=== PATIENT | male | born 1965 | race Caucasian/White ===

== ENCOUNTER 2017-11-01 17:15 | Inpatient (IN) | payer OTHER ==
[~2017-11-01] VITALS: Ht 175.3 cm; Wt 69.4 kg
[2017-11-01 17:59] LABS: BASOPHILS 0.3 % (0-2); EOSINOPHILS 1.2 % (0-7); HEMATOCRIT 41.6 % (42.0-54.0); HEMOGLOBIN 14.9 g/dL (13.5-17.5); IMMATURE GRANULOCYTES 0.6 % (0-5); LYMPHOCYTES 46.1 % (15-50); MCH 33.3 pg (26.0-34.0); MCHC 35.8 g/dL (31.0-37.0); MCV 92.9 fL (80.0-100.0); MEAN PLATELET VOLUME 10.4 fL (7.4-10.4); MONOCYTES 9.3 % (2-11); NEUTROPHILS 42.5 % (40-80); PLATELET COUNT 276 10x3/uL (130-400); RBC 4.48 10x6/uL (4.20-6.10); RDW 12.6 % (11.5-14.5); WBC 3.2 10x3/uL (4.8-10.8)
[2017-11-01 18:09] LABS: INR 1.04 (0.85-1.17); PROTIME 13.2 SECONDS (11.6-15.0)
[2017-11-01 18:26] LABS: ALBUMIN 3.7 g/dL (3.4-5.0); ALKALINE PHOSPHATASE 46 U/L (46-116); ALT (SGPT) 15 U/L (10-68); BILIRUBIN - TOTAL 0.36 mg/dL (0.2-1.3); CALC OSMOLALITY 301 mosm/kg (275-300); CARBON DIOXIDE 21.7 mmol/L (21.0-32.0); CHLORIDE - SERUM 95 mmol/L (98-107); CREATININE - SERUM 6.5 mg/dL (0.6-1.3); GLUCOSE 108 mg/dL (74-106); POTASSIUM - SERUM 5.2 mmol/L (3.5-5.1); PROTEIN - SERUM 6.8 g/dL (6.4-8.2); SODIUM 129 mmol/L (136-145); UREA NITROGEN 129 mg/dL (7-18); eGFR NON AFRICAN AMERICAN 10 mL/min (90-120)
[2017-11-01 18:31] LABS: CREATINE KINASE 145 UL (21-232); LIPASE 430 U/L (73-393); PRO BNP 31 pg/mL (0-125)
[2017-11-01 18:36] LABS: MAGNESIUM - SERUM 3.8 mg/dL (1.8-2.4); TROPONIN-I < 0.017 ng/mL (0.000-0.060)
[2017-11-01 19:01] LABS: APPEARANCE CLEAR (CLEAR); BILIRUBIN NEGATIVE (NEGATIVE); COLOR YELLOW (YELLOW); GLUCOSE NEGATIVE (NEGATIVE); KETONE NEGATIVE (NEGATIVE); NITRITE NEGATIVE (NEGATIVE); PROTEIN NEGATIVE (NEGATIVE); UROBILINOGEN NORMAL (NORMAL)
[2017-11-01 19:40] LABS: T4 THYROXIN - FREE 0.94 ng/dL (0.76-1.46); T4 THYROXINE 6.5 ug/dL (4.7-13.3); THYROID STIMULATING HORMONE 1.2 uIU/mL (0.36-3.74)
[2017-11-02 01:16] LABS: CKMB 2.2 U/L (0.0-3.6); CREATINE KINASE 150 UL (21-232)
[2017-11-02 01:29] LABS: TROPONIN-I < 0.017 ng/mL (0.000-0.060)
[2017-11-02 01:38] VITALS: BMI 22.6
[2017-11-02 02:46] LABS: BASOPHILS 0.4 % (0-2); EOSINOPHILS 1.5 % (0-7); HEMATOCRIT 39.7 % (42.0-54.0); HEMOGLOBIN 14.1 g/dL (13.5-17.5); IMMATURE GRANULOCYTES 0.4 % (0-5); LYMPHOCYTES 39.8 % (15-50); MCH 32.9 pg (26.0-34.0); MCHC 35.5 g/dL (31.0-37.0); MCV 92.5 fL (80.0-100.0); MONOCYTES 17.4 % (2-11); NEUTROPHILS 40.5 % (40-80); PLATELET COUNT 224 10x3/uL (130-400); RBC 4.29 10x6/uL (4.20-6.10); RDW 12.6 % (11.5-14.5); WBC 2.6 10x3/uL (4.8-10.8)
[2017-11-02 02:55] LABS: ANION GAP 12.7 mmol/L (8-16); CALCIUM 8.6 mg/dL (8.5-10.1); CARBON DIOXIDE 23.7 mmol/L (21.0-32.0); MAGNESIUM - SERUM 3.2 mg/dL (1.8-2.4); PHOSPHOROUS 5.1 mg/dL (2.5-4.9); POTASSIUM - SERUM 5.4 mmol/L (3.5-5.1)
[2017-11-02 02:57] VITALS: BP 74/67
[2017-11-02 03:07] LABS: CKMB 2.1 U/L (0.0-3.6); CREATINE KINASE 144 UL (21-232)
[2017-11-02 03:08] LABS: TROPONIN-I < 0.017 ng/mL (0.000-0.060)
[2017-11-02 05:58] VITALS: BP 69/41
[2017-11-02 08:43] VITALS: BP 78/40
[2017-11-02 08:58] LABS: CREATINE KINASE 128 UL (21-232); TROPONIN-I < 0.017 ng/mL (0.000-0.060)
[2017-11-02 09:19] VITALS: BMI 22.6
[2017-11-02 10:37] VITALS: Ht 175.3 cm; Wt 69.4 kg
[2017-11-02 11:58] VITALS: BP 76/46
[2017-11-02 16:44] VITALS: BP 86/45
[2017-11-02 21:57] VITALS: BP 98/66
[2017-11-03 01:43] VITALS: BP 87/42
[2017-11-03 06:17] VITALS: BP 88/44
[2017-11-03 06:21] LABS: BASOPHILS 0.4 % (0-2); EOSINOPHILS 1.3 % (0-7); HEMATOCRIT 36.3 % (42.0-54.0); HEMOGLOBIN 12.5 g/dL (13.5-17.5); IMMATURE GRANULOCYTES 0.9 % (0-5); LYMPHOCYTES 44.7 % (15-50); MCH 32.4 pg (26.0-34.0); MCHC 34.4 g/dL (31.0-37.0); MEAN PLATELET VOLUME 9.9 fL (7.4-10.4); MONOCYTES 25.4 % (2-11); NEUTROPHILS 27.3 % (40-80); PLATELET COUNT 212 10x3/uL (130-400); RBC 3.86 10x6/uL (4.20-6.10); RDW 12.7 % (11.5-14.5); WBC 2.3 10x3/uL (4.8-10.8)
[2017-11-03 07:21] LABS: ANION GAP 13.2 mmol/L (8-16); CALCIUM 7.9 mg/dL (8.5-10.1); CARBON DIOXIDE 22.1 mmol/L (21.0-32.0); POTASSIUM - SERUM 5.3 mmol/L (3.5-5.1)
[2017-11-03 07:25] LABS: CREATININE - SERUM 1.8 mg/dL (0.6-1.3)
[2017-11-03 08:18] VITALS: BP 88/47
[2017-11-03 12:28] VITALS: BP 87/46
[2017-11-03 16:30] VITALS: BP 91/56
[2017-11-03 21:01] VITALS: BP 91/53
[2017-11-04 00:58] VITALS: BP 129/63
[2017-11-04 05:28] LABS: BASOPHILS 0.4 % (0-2); EOSINOPHILS 0.8 % (0-7); HEMATOCRIT 33.6 % (42.0-54.0); HEMOGLOBIN 11.4 g/dL (13.5-17.5); IMMATURE GRANULOCYTES 1.1 % (0-5); LYMPHOCYTES 43.3 % (15-50); MCH 31.9 pg (26.0-34.0); MCHC 33.9 g/dL (31.0-37.0); MCV 94.1 fL (80.0-100.0); MEAN PLATELET VOLUME 9.5 fL (7.4-10.4); MONOCYTES 32.3 % (2-11); NEUTROPHILS 22.1 % (40-80); PLATELET COUNT 194 10x3/uL (130-400); RBC 3.57 10x6/uL (4.20-6.10); RDW 12.6 % (11.5-14.5); WBC 2.6 10x3/uL (4.8-10.8)
[2017-11-04 05:42] LABS: ANION GAP 11.2 mmol/L (8-16); CALCIUM 7.8 mg/dL (8.5-10.1); CARBON DIOXIDE 27.5 mmol/L (21.0-32.0); CREATININE - SERUM 1.4 mg/dL (0.6-1.3); POTASSIUM - SERUM 4.7 mmol/L (3.5-5.1)
[2017-11-04 06:33] VITALS: BP 92/50
[2017-11-04 09:13] VITALS: BP 109/63
[2017-11-04 12:46] VITALS: BP 91/58
== END 2017-11-04 13:55 | disposition home or self-care (01) | DRG 684 ==
LOC: D.ER 17:15 → D.M2 20:48 → OBSVTIME 20:48 → D.M2 20:48
PROVIDERS: Emergency Medicine; Family Medicine; Internal Medicine Nephrology; Nurse Practitioner Family
DX: N17.9 Acute kidney failure, unspecified (principal); E86.9 Volume depletion, unspecified; E87.5 Hyperkalemia; E03.9 Hypothyroidism, unspecified; C02.9 Malignant neoplasm of tongue, unspecified; Z87.891 Personal history of nicotine dependence

== ENCOUNTER 2018-09-04 07:55 | Inpatient (IN) | payer OTHER ==
[~2018-09-04] VITALS: Ht 175.3 cm; Wt 54.5 kg
--- NOTE | 2018-09-04 09:00 | NUR ---
RECIEVED TO ROOM 1210 VIA AMBULANCE. EMS AND FRIEND AT BEDSIDE.
--- NOTE | 2018-09-04 09:25 | NUR ---
RIGHT INFUSAPORT ACCESSED WITH 19 GUAGE 0.75 INCH HEUBER NEEDLE. FLEXIBLE BABYSITTER DILAUDID 1 MG/HR CONTINOUS SETUP FOR PAIN CONTROL. O2 6L NC IN USE. SWELLING NOTED TO LEFT JAW AND THROAT. ABRASIONS NOTED TO LEFT LOWER LEG AND LEFT FLANK.
[2018-09-04 10:47] VITALS: BP 140/98; Ht 175.3 cm; Wt 54.5 kg
--- NOTE | 2018-09-04 10:50 | NUR ---
CALLED TO ROOM BY . PATIENT FOUND UNRESPONSIVE TO VERBAL AND TACTILE STIMULATION. COLOR PALE AND JEROME. RESPIRATIONS SHALLOW AND LABORED.
--- NOTE | 2018-09-04 11:00 | NUR ---
HOSPICE NURSE BY TO CHECK ON PATIENT. PATIENT FOUND WITH NO RESPIRATIONS BUT WEAK PULSE.
--- NOTE | 2018-09-04 11:22 | NUR ---
HOSPICE NURSE AT BEDSIDE. PATIENT WITH NO RESPIRATIONS OR HEART RATE. NO BLOOD PRESSURE FOUND-CONFIRMED WITH AUTOMATIC BLOOD PRESSURE MACHINE. PUPILS FIXED AND NONREACTIVE. FAMILY AT BEDSIDE.
--- NOTE | 2018-09-04 12:35 | NUR ---
SOLOMON NEEDLE REMOVED FROM RIGHT INFUSAPORT. FENTANYL REMOVED AND DISCARDED IN SHARPS CONTAINER.
--- NOTE | 2018-09-04 12:50 | NUR ---
BODY RELEASED TO [facility].
--- NOTE | 2018-09-04 15:51 | NUR ---
Per CMS protocol, restraint report logged into data base.
== END 2018-09-04 12:50 | DRG 951 ==
LOC: D.M3 07:55
PROVIDERS: ADMIT Legal Medicine; ATTEND Legal Medicine
DX: Z51.5 Encounter for palliative care (principal)